=== PATIENT | female | born 1980 | race Caucasian/White ===

== ENCOUNTER 2020-09-06 11:34 | Emergency (ER) | payer OTHER ==
[~2020-09-06] VITALS: Ht 154.9 cm; Wt 69.0 kg
[2020-09-06 13:06] LABS: BASO % 0.2 % (0.0-2.0); EOS % 0.2 % (0-4.0); GRAN % 77.6 % (42.2-75.2); HEMATOCRIT 39.4 % (37.0-47.0); HEMOGLOBIN 13.2 g/dl (12.5-16.0); LYMPH # 0.9 (1.2-3.4); LYMPH % 14.1 % (20.0-51.0); MEAN CELL VOLUME 85 fl (80.0-100.0); MEAN CORPUSCULAR HEMOGLOBIN 29 pg (27.0-31.0); MEAN CORPUSCULAR HGB CONC 34 g/dl (33.0-37.0); MEAN PLATELET VOLUME 10.3 fl (7.4-10.4); MONO # 0.5 (0.1-0.6); MONO % 7.4 % (1.7-9.3); PLATELET COUNT 175 K/mm3 (130-400); RED BLOOD COUNT 4.62 M/mm3 (4.10-5.30); REDCELL DISTRIBUTION WIDTH-CV 12.1 % (11.5-14.5)
[2020-09-06 13:19] LABS: STREP SCREEN NEGATIVE
[2020-09-06 13:20] LABS: ALBUMIN 4.1 gm/dL (3.5-5.0); BILIRUBIN,TOTAL 0.1 mg/dL (0.0-1.0); CALCIUM 8.4 mg/dL (8.4-10.2); CREATININE, serum 0.53 (0.52-1.25); TOTAL PROTEIN 7.4 gm/dL (6.4-8.2)
[2020-09-06 13:23] LABS: MONOSCREEN NEGATIVE
[2020-09-06] MEDS ORDERED: OMNICEF 300MG300 MG PO (14:40)
[2020-09-06] MEDS ORDERED: NORCO 325 MG-51 TAB PO (14:45)
[2020-09-06 14:55] VITALS: BP 120/88; PULSE 95; TEMP 99
== END 2020-09-06 14:57 | disposition home or self-care (01) ==
LOC: COL.ER 11:34
PROVIDERS: Physician Assistant
DX: H66.92 Otitis media, unspecified, left ear (principal); Z32.02 Encounter for pregnancy test, result negative
CPT/HCPCS: J0696; J1885; J3010; J7030

== ENCOUNTER 2024-01-29 20:00 | Emergency (ER) | payer SELFPAY ==
[~2024-01-29] VITALS: Ht 154.9 cm; Wt 67.3 kg
[~2024-01-29 20:00] MED LIST: NORCO 325 MG-51 TAB PO; OMNICEF 300MG300 MG PO
[2024-01-29 20:17] VITALS: BP 150/96; PULSE 87; TEMP 98.4
== END 2024-01-29 23:38 | disposition left against medical advice (07) ==
LOC: COL.ER 20:00
DX: Z53.21 Procedure and treatment not carried out due to patient leaving prior to being seen by health care provider (principal)